=== PATIENT | male | born 1990 | race Caucasian/White ===

== ENCOUNTER 2020-06-04 20:07 | Emergency (ER) | payer SELFPAY ==
[2020-06-04 20:49] LABS: Actual Bicarbonate (HCO3a) 24.2 mEq/L (22-28); Analyzer IN Cardio ER; CO2 Tension 42.4 mmHg (35.0-45.0); Calcium, Ionized (arterial) 1.07 mmol/L (1.12-1.30); Carboxyhemoglobin (COHb) 8.5 gm% (0.0-3.0); Hemoglobin (Hb) 13.3 g/dL (14.0-18.0); O2 Tension (PaO2), arterial 213.1 mmHg (80.0-100.0); Potassium - ABG Lab 3.98 mmol/L (3.70-5.30); pH, Arterial 7.38 (7.35-7.45)
[2020-06-04 20:50] LABS: Puncture Site RBA
[2020-06-04 20:51] LABS: ALT (SGPT) 10 U/L (8-55); AST (SGOT) 15 U/L (5-34); Albumin 3.7 g/dL (3.5-5.0); Alkaline Phosphatase 55 U/L (40-110); Anion Gap 14 mmol/L (10-20); BUN (Urea Nitrogen) 11 mg/dL (8.9-20.6); Bilirubin, Total 0.3 mg/dL (0.2-1.2); Calc. Creatinine Clearance 0 mL/min (70-130); Carbon Dioxide 21 mmol/L (22-29); Chloride 106 mmol/L (98-107); Globulin 2.4 g/dL (2.4-3.5); Glucose 298 mg/dL (70-105); Potassium 4.1 mmol/L (3.5-5.1); Protein, Total 6.1 g/dL (6.0-8.3); Sodium 137 mmol/L (136-145)
[2020-06-04 21:02] LABS: #Basophils 0.1 thou/uL (0.0-0.2); #Eosinphils 0.1 thou/uL (0.0-0.7); #Lymphocytes 2.4 thou/uL (1.20-3.40); #Monocytes 0.8 thou/uL (0.11-0.59); #Neutrophils 4.5 thou/uL (1.40-6.50); %Basophils 0.9 % (0.0-1.0); %Eosinophils 1.8 % (0.0-10.0); %Lymphocytes 30.1 % (21.0-51.0); %Monocytes 10.5 % (0.0-10.0); %Neutrophils 56.7 % (42.0-75.0); Hemoglobin 12.8 g/dL (14.0-18.0); Mean Corpuscular HGB CONC 33.4 g/dL (32.0-36.0); Mean Corpuscular Hemoglobin 30.7 pg (27.0-31.0); Mean Corpuscular Volume 91.8 fL (78.0-98.0); Mean Platelet Volume 6.9 fL (7.4-10.4); Platelet Count 95 thou/uL (130-400); Platelet Morphology Comment Appears Decreased; RBC Distribution Width 12.6 % (11.5-14.5); Red Blood Cell (RBC) Count 4.19 mill/uL (4.70-6.10); White Blood Cell (WBC) Count 7.9 thou/uL (4.8-10.8)
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
[2020-06-04] MEDS ORDERED: Ketorolac Tromethamine 30 MG/ML VIAL ONE (22:19)
== END 2020-06-04 22:31 | disposition home or self-care (01) ==
LOC: ERS 20:07
DX: S49.92XA Unspecified injury of left shoulder and upper arm, initial encounter (principal); E10.9 Type 1 diabetes mellitus without complications; V29.40XA Motorcycle driver injured in collision with unspecified motor vehicles in traffic accident, initial encounter
CPT/HCPCS: 36416; 36600; 71045; 80053; 82010; 82805; 85025; 96374; J1885